=== PATIENT | female | born 2000 | race Two or more races ===

== ENCOUNTER 2023-10-24 09:14 | Emergency (ER) | payer OTHER ==
[~2023-10-24] VITALS: Ht 167.6 cm; Wt 54.4 kg
[2023-10-24] MEDS ORDERED: KETOROLAC TROMETHAMINE 60 MG VIAL IM STA (10:21)
== END 2023-10-24 11:12 | disposition home or self-care (01) ==
LOC: ER 09:14
DX: S83.207A Unspecified tear of unspecified meniscus, current injury, left knee, initial encounter (principal); X58.XXXA Exposure to other specified factors, initial encounter; Y93.67 Activity, basketball; Y92.89 Other specified places as the place of occurrence of the external cause; Y99.9 Unspecified external cause status